=== PATIENT | male | born 1995 | race African-American/Black ===

== ENCOUNTER 2021-02-25 08:26 | Emergency (ER) | payer OTHER ==
[~2021-02-25] VITALS: Ht 188 cm; Wt 127.0 kg
[2021-02-25] MEDS ORDERED: AMOXICILLIN 50500 MG PO (09:01)
[2021-02-25] MEDS ORDERED: IBUPROFEN 800800 MG PO (09:01)
[2021-02-25 09:19] VITALS: BP 139/82
== END 2021-02-25 09:20 | disposition home or self-care (01) ==
LOC: M.ERS 08:26
DX: K08.89 Other specified disorders of teeth and supporting structures (principal)